=== PATIENT | male | born 1975 | race Caucasian/White ===

== ENCOUNTER 2018-08-07 20:11 | Emergency (ER) | payer MEDICAID, OTHER ==
[2018-08-07] MEDS ORDERED: Lidocaine 2% Viscous Solution 15 ML Cup PO ONE (20:12)
[2018-08-07] MEDS ORDERED: Ondansetron 4 MG Tab.DIS PO ONE (22:54)
[2018-08-07] MEDS ORDERED: HYDROmorphone 1 MG/ML Syringe IM ONE (22:54)
[2018-08-07] MEDS ORDERED: GI Cocktail Oral Solution 30 ML PO ONE (22:54)
[2018-08-07] MEDS ORDERED: metroNIDAZOLE 250 MG Tab PO ONE (23:21)
[2018-08-07] MEDS ORDERED: Ciprofloxacin 500 MG Tab PO ONE (23:21)
[2018-08-07] MEDS ORDERED: Lidocaine 2% Viscous Solution 15 ML Cup ONE (23:34)
--- NOTE | 2018-08-07 23:37 | EDM.PDOC ---
ED HPI GENERAL MEDICAL PROBLEM - General Chief Complaint: Abdominal Pain Stated Complaint: STOMACH PAIN Time Seen by Provider: 08/07/18 22:47 Source of Information: Reports: Patient, RN, RN Notes Reviewed History Limitations: Reports: No Limitations - History of Present Illness INITIAL COMMENTS - FREE TEXT/NARRATIVE: Pt to ER with c/o epigastric pain since this morning. He states pain the LUQ began about lunch time. He admits to nausea and vomiting. Denies fever, chills, diarrhea, CP, SOB. Rates pain 8-9/10. He states he has a history of Diverticulosis/diverticulitis, as well as a hiatal hernia. He states the pain is the same as it has been in the past. Onset: Today, Sudden Duration: Constant Location: Reports: Abdomen Quality: Reports: Burning, Pressure, Sharp Severity: Severe Improves with: Reports: None Worsens with: Reports: None Associated Symptoms: Reports: Nausea/Vomiting Left Abdomen Pain Score (Numeric/FACES): 9 - Related Data Allergies Allergy/AdvReac Type Severity Reaction Status Date / Time contrast dye Allergy Itching Uncoded 08/07/18 20:29 Past Medical History Cardiovascular History: Reports: Hypertension Gastrointestinal History: Reports: Diverticulosis, GERD, Helicobacter Pylori, Hiatal Hernia, Other (See Below) Other Gastrointestinal History: endoscopy Genitourinary History: Reports: Renal Calculus Psychiatric History: Reports: Depression Endocrine/Metabolic History: Reports: Hypoparathyroidism - Past Surgical History GI Surgical History: Reports: Cholecystectomy, Colonoscopy, Hernia, Inguinal Male Surgical History: Reports: Other (See Below) Other Male Surgeries/Procedures: testicle removed Social & Family History - Tobacco Use Smoking Status *Q: Current Every Day Smoker Years of Tobacco use: 10 Packs/Tins Daily: 0.5 Second Hand Smoke Exposure: Yes - Caffeine Use Caffeine Use: Reports: None - Recreational Drug Use Recreational Drug Use: Yes Drug Use in Last 12 Months: Yes Recreational Drug Type: Reports: Marijuana/Hashish ED ROS GENERAL - Review of Systems Review Of Systems: ROS reveals no pertinent complaints other than HPI. ED EXAM, GI/ABD - Physical Exam Exam: See Below Exam Limited By: No Limitations General Appearance: Alert, WD/WN, Moderate Distress Eyes: Bilateral: Normal Appearance, EOMI Ears: Normal External Exam, Hearing Grossly Normal Nose: Normal Inspection Throat/Mouth: Normal Inspection, Normal Voice, No Airway Compromise Head: Atraumatic, Normocephalic Neck: Normal Inspection, Supple, Non-Tender, Full Range of Motion Respiratory/Chest: No Respiratory Distress, Lungs Clear, Normal Breath Sounds, No Accessory Muscle Use, Chest Non-Tender Cardiovascular: Normal Peripheral Pulses, Regular Rate, Rhythm, No Edema, No Gallop, No JVD, No Murmur, No Rub GI/Abdominal Exam: Normal Bowel Sounds, Soft, Tender (RUQ, LUQ, epigastrum, LLQ) (Male) Exam: Deferred Rectal (Males) Exam: Deferred Back Exam: Normal Inspection, Full Range of Motion Extremities: Normal Inspection, Normal Range of Motion, Non-Tender, No Pedal Edema, Normal Capillary Refill Neurological: Alert, Oriented, CN II-XII Intact, Normal Cognition, Normal Gait, Normal Reflexes, No Motor/Sensory Deficits Psychiatric: Normal Affect, Normal Mood Skin Exam: Warm, Dry, Intact, Normal Color, No Rash Lymphatic: No Adenopathy Course - Vital Signs Last Recorded V/S: Last Vital Signs Temp 97.7 F 08/07/18 20:24 Pulse 94 08/07/18 20:24 Resp 18 08/07/18 20:24 BP 181/106 H 08/07/18 20:24 Pulse Ox 100 08/07/18 20:24 - Orders/Labs/Meds Meds: Medications Discontinued Medications Generic Name Dose Route Start Last Admin Trade Name Leatha PRN Reason Stop Dose Admin Al Hydroxide/Mg Hydroxide 30 ml 08/07/18 22:54 08/07/18 23:29 Gi Cocktail PO 08/07/18 22:55 30 ml ONETIME ONE Administration Ciprofloxacin 500 mg 08/07/18 23:21 08/07/18 23:28 Ciprofloxacin Hcl PO 08/07/18 23:22 500 mg ONETIME ONE Administration Hydromorphone HCl 1 mg 08/07/18 22:54 08/07/18 23:28 Dilaudid IM 08/07/18 22:55 1 mg ONETIME ONE Administration Lidocaine HCl Confirm 08/07/18 23:34 Xylocaine 2% Viscous Administered 08/07/18 23:35 Dose 30 ml .ROUTE .STK-MED ONE Metronidazole 500 mg 08/07/18 23:21 08/07/18 23:28 Metronidazole PO 08/07/18 23:22 500 mg ONETIME ONE Administration Ondansetron HCl 4 mg 08/07/18 22:54 08/07/18 23:28 Zofran Odt PO 08/07/18 22:55 4 mg ONETIME ONE Administration - Re-Assessments/Exams Free Text/Narrative Re-Assessment/Exam: 08/08/18 05:15 Patient denies the need for labwork. He states this happens frequently. He doctors with GI and at [place]. Departure - Departure Time of Disposition: 23:36 Disposition: Home, Self-Care 01 Condition: Fair Clinical Impression: Diverticulitis - Discharge Information *PRESCRIPTION DRUG MONITORING PROGRAM REVIEWED*: No *COPY OF PRESCRIPTION DRUG MONITORING REPORT IN PATIENT KARY: No Instructions: Viral Gastroenteritis, Adult, [id number], Nausea and Vomiting, Adult, [id number], Abdominal Pain, Adult, [id number] Forms: ED Department Discharge Additional Instructions: Drink plenty of water RX: Jose Monahan Flagyl Follow up with your primary care facility
== END 2018-08-07 23:39 | disposition home or self-care (01) ==
LOC: DL.ED 20:11
DX: K57.92 Diverticulitis of intestine, part unspecified, without perforation or abscess without bleeding (principal); I10 Essential (primary) hypertension; F17.210 Nicotine dependence, cigarettes, uncomplicated; Z91.041 Radiographic dye allergy status
CPT/HCPCS: 96372; 99284; A9270; J1170